=== PATIENT | male | born 1960 | race Two or more races ===

== ENCOUNTER → 2024-12-05 | Day surgery (SDC) | payer MEDICAID ==
[2024-11-28 10:18] LABS: Hematocrit 43.1 % (41.0-53.0); Hemoglobin 15.3 g/dL (13.5-17.5); Mean Corpuscular Hemoglobin 33.8 pg (28.0-32.0); Mean Corpuscular Volume 94.8 fL (80.0-100.0)
[2024-11-28 10:25] LABS: Urine Protein, UAD Negative (Negative)
[2024-11-28 10:34] LABS: INR 0.97 (0.9-1.15); Partial Thromboplastin Time 26.6 SEC (24.5-34.5); Prothrombin Time 10.3 sec (9.3-11.8)
[2024-11-28 10:40] LABS: Alanine Aminotransferase 23 U/L (7-40); Albumin 4.5 g/dL (3.2-4.8); Alkaline Phosphatase 75 U/L (46-116); Anion Gap 8 (5-15); BUN/Creatinine Ratio 20.0 (10.0-20.0); Bilirubin, Total 0.6 mg/dL (0.2-1.0); Blood Urea Nitrogen 17 mg/dL (9-23); Calcium 10.1 mg/dL (8.7-10.4); Carbon Dioxide 26 mmol/L (20-31); Chloride 107 mmol/L (98-107); Glucose 92 mg/dL (74-106); Potassium 4.1 mmol/L (3.5-5.1); Sodium 141 mmol/L (136-145); Total Protein 7.1 g/dL (5.7-8.2)
[2024-11-28 11:08] LABS: Total Cells Counted 100.0 (100)
[2024-11-28 11:09] LABS: RBC Morphology Normal
[~2024-12-05] VITALS: Ht 165.1 cm; Wt 81.6 kg
[~2024-12-05] MED LIST: ACET-1080 PO; CHOL200031 PO; DULO20CA PO; GABA-1250 PO; LOSA-534 PO; METH-1181 PO; MIDAZOLAM HCL 2MG/2ML 2ml VIAL (1mg/ml) ONE; PROPOFOL 10 MG/ML 20 ML IV ONE
[2024-12-05 12:10] VITALS: TEMP 97.1; O2SAT 96
--- NOTE | 2024-12-05 12:14 | DVHHP2 ---
GI H&P Pre-Op Assessment Date: 12/05/24 Chief complaint: colon cancer screening HPI: per clinic note Past medical history: per clinic note Past surgical history: per clinic note Family history: per clinic note Physical exam: General: NAD, AAOX3 HEENT: PERRL, no scleral icterus, normal hearing, gums without lesions or bleeding, oropharynx clear without erythema or exudate. Neck: Supple without enlargement of the thyroid, or lymphadenopathy. Chest: Normal size and shape, no tenderness, lung newman clear to auscultation and percussion, nonlabored breathing. Heart: RRR, no murmur Abdomen: non-distended, no tenderness to palpation, +BS, no hepatosplenomegaly Extremities: no edema Neurological: CN II-XII intact, sensation intact in all extremities, 5+ strength in all extremities Skin: No rashes, No jaundice Assessment: - colon cancer screening Plan: - Colonoscopy - Risks (bleeding, infection, perforation, reaction to sedation medications and cardiopulmonary arrest) and benefit of the procedure were explained to patient. Patient agrees to undergo the procedure. BENSON SHEFFIELD MD Dec 05, 2024 12:14
--- NOTE | 2024-12-05 12:15 | DVHDS2 ---
Physician Discharge Progress N Final Diagnosis: Diverticulosis Operations or Procedures: Operations or Procedures Colonoscopy Condition on Discharge: Good Disposition: Home Discharge Instructions: Diet: Regular Activity: No Restrictions, As Tolerated Medications: Resume with previous home medications Follow Up Care: Discharge Statement: "Patient was advised to return to the ER or call 911 if any headaches, dizziness, shortness of breath, chest pain, abdominal pain, bleeding, fevers, or worsening of medical condition. Patient was counseled about treatment plan, medications, possible side effects, patientverbalized understanding. All questions were answered to the best of my ability. This discharge took greater then 30 minutes in planning, reviewing documentation, counseling the patient, and discussing with other team members." BENSON SHEFFIELD MD Dec 05, 2024 12:15
--- NOTE | 2024-12-05 12:15 | DVHOP2 ---
Operative Report DATE OF OPERATION: 12/05/24 PROCEDURE: Colonoscopy. PREOPERATIVE INDICATION: The patient is a 64 -year-old male undergoing colonoscopy for colon cancer screening. POSTOPERATIVE DIAGNOSES: 1. Moderate diverticulosis in the left colon PROCEDURE PERFORMED BY: Ajit Cruz M.D. SCOPE: Olympus videocolonoscope. ASA CLASS: 3 PREOPERATIVE MEDICATIONS: MAC with Dr Messina PROCEDURE IN DETAIL: After obtaining an informed consent, the patient was placed on left lateral decubitus position. He was then sedated with the above medications. A rectal examination was performed that was normal. The colonoscope was then passed through the anus into the rectosigmoid and through the descending, transverse, and ascending colon up to the cecum with visualization of the appendiceal orifice, base of the cecum and the ileocecal valve. No mass or polyp was observed. There was moderate diverticulosis in left colon. The colonoscope was then withdrawn. The patient tolerated the procedure well without difficulty. WITHDRAWAL TIME: 6 minutes QUALITY OF THE PREP: [place] Bowel Prep score: 6 COMPLICATIONS : None SPECIMENS: None DISPOSITION: D/C to home PLAN: 1. Repeat colonoscopy in 10 years for colon cancer screening. AJIT CRUZ MD Dec 05, 2024 12:15
[2024-12-05 12:35] VITALS: BP 128/85; PULSE 63; RESP 13; O2SAT 97
== END | disposition home or self-care (01) ==
LOC: GI 08:55
PROVIDERS: ATTEND Internal Medicine Gastroenterology
DX: Z12.11 Encounter for screening for malignant neoplasm of colon (principal); K57.30 Diverticulosis of large intestine without perforation or abscess without bleeding; I10 Essential (primary) hypertension; Z79.899 Other long term (current) drug therapy
CPT/HCPCS: 36415; 45378; 80053; 81001; 85007; 85027; 85610; 85730; J2250; J2704; J7030